=== PATIENT | male | born 1940 | race Caucasian/White ===

== ENCOUNTER 2020-09-06 17:38 | Emergency (ER) | payer MEDICARE, OTHER | END 2020-09-06 18:05 | disposition left against medical advice (07) | LOC: ER1 17:38 | DX: Z53.21 Procedure and treatment not carried out due to patient leaving prior to being seen by health care provider (principal) ==

== ENCOUNTER → 2020-12-09 | Outpatient (CLI) | payer OTHER | LOC: EMI 10:32 | DX: R42 Dizziness and giddiness (principal); G31.89 Other specified degenerative diseases of nervous system | CPT/HCPCS: 70551 ==